=== PATIENT | male | born 1980 | race Caucasian/White ===

== ENCOUNTER 2017-03-23 03:15 | Emergency (ER) | payer OTHER ==
[2017-03-23 03:24] VITALS: O2SAT 97
--- NOTE | 2017-03-23 04:04 | EDPHY ---
H & P Stated Complaint: left ear pain HPI/ROS: HPI CHIEF COMPLAINT: Left ear pain. HISTORY OF PRESENT ILLNESS: Patient otherwise healthy 36-year-old male, recent upper respiratory tract infection now presents emergency room with left ear pain that started earlier this evening. Hurts when he swallows. Denies fever vomiting. Denies chest pain or shortness of breath. Denies productive cough. Main complaint 6 at 10 left ear pain. No drainage. Past Medical History: No significant medical history Past Surgical History: No significant surgical history Social History: Lives locally denies drugs alcohol tobacco. Family History: Noncontributory ROS REVIEW OF SYSTEMS: A comprehensive 10 point review of systems is otherwise negative aside from elements mentioned in the history of present illness. Exam Constitutional appears well nontoxic triage nursing summary reviewed, vital signs reviewed, awake/alert. Eyes normal conjunctivae and sclera, EOMI, PERRLA. HENT left TM slight erythema and bulge, TM intact, there is cerumen in the ear canal however not obstructing the view TM, right TM clear, cerumen in the ear canal normal inspection, atraumatic, moist mucus membranes, no epistaxis, neck supple/ no meningismus, no raccoon eyes. Posterior pharynx slight erythema no significant exudate uvula midline. No swelling. Respiratory clear to auscultation bilaterally, normal breath sounds, no respiratory distress, no wheezing. Cardiovascular rate normal, regular rhythm, no murmur, no edema, distal pulses normal. Gastrointestinal soft, non-tender, no rebound, no guarding, normal bowel sounds, no distension, no pulsatile mass. Genitourinary no CVA tenderness. Musculoskeletal no midline vertebral tenderness, full range of motion, no calf swelling, no tenderness of extremities, no meningismus, good pulses, neurovascularly intact. Skin pink, warm, & dry, no rash, skin atraumatic. Neurologic awake, alert and oriented x 3, AAOx3, moves all 4 extremities equally, motor intact, sensory intact, CN II-XII intact, normal cerebellar, normal vision, normal speech. Psychiatric normal mood/affect. Heme/Lymph/Immune no lymphadenopathy. Differential Diagnosis: Includes but is not limited to in a particular order upper respiratory tract infection, otitis media, middle ear effusion Medical Decision Making: Plan for this patient ibuprofen 800 mg for pain control as he is not taking any pain medicine prior to arrival. Will start on amoxicillin 1st dose given in emergency room. Re-evaluation: Prescription will be provided for amoxicillin and ibuprofen. Recommend Mucinex D congestion this well. Source: Patient - Medical/Surgical History Hx Asthma: No Hx Chronic Respiratory Disease: No Hx Diabetes: No Hx Cardiac Disease: No Hx Renal Disease: No Hx Cirrhosis: No Hx Alcoholism: No Hx HIV/AIDS: No Hx Splenectomy or Spleen Trauma: No - Social History Smoking Status: Never smoked Constitutional: Initial Vital Signs Temperature (C) 36.6 C 03/23/17 03:19 Heart Rate 71 03/23/17 03:19 Respiratory Rate 20 03/23/17 03:19 Blood Pressure 121/86 H 03/23/17 03:19 O2 Sat (%) 97 03/23/17 03:19 Allergies/Adverse Reactions: No Known Allergies Allergy (Unverified 03/23/17 03:18) Home Medications: Medication Instructions Recorded Amoxicillin Trihydrate 500 mg PO TID 7 Days cap 03/23/17 [Amoxicillin] Ibuprofen [Motrin (*)] 800 mg PO Q6-8PRN #14 tab 03/23/17 guaiFENesin [Guaifenesin ER] 600 mg PO BID #14 tab.er.12h 03/23/17 Departure - Departure Disposition: Home, Routine, Self-Care Clinical Impression: Otitis media Qualifiers: Otitis media type: suppurative Chronicity: acute Laterality: left Recurrence: not specified as recurrent Spontaneous tympanic membrane rupture: without spontaneous rupture Qualified Code(s): H66.002 - Acute suppurative otitis media without spontaneous rupture of ear drum, left ear Condition: Good Instructions: Ear Infection (ED) Additional Instructions: 1. Drink lots of fluids stay well-hydrated. 2. Take medications with food not empty stomach. 3. Follow up with your primary care doctor Referrals: ELOY MERCEDES [Other] - As per Instructions Prescriptions: Amoxicillin Trihydrate [Amoxicillin] 500 mg PO TID 7 Days cap guaiFENesin [Guaifenesin ER] 600 mg PO BID #14 tab.er.12h Ibuprofen [Motrin (*)] 800 mg PO Q6-8PRN #14 tab
[2017-03-23] MEDS ORDERED: IBUPROFEN 800 MG TAB PO ONE (04:11)
[2017-03-23 04:23] VITALS: BP 118/85; PULSE 83; RESP 16; TEMP 98.1
== END 2017-03-23 04:23 | disposition home or self-care (01) ==
DX: H66.002 Acute suppurative otitis media without spontaneous rupture of ear drum, left ear (principal)